=== PATIENT | female | born 1995 | race Caucasian/White ===

== ENCOUNTER 2023-12-02 19:12 | Emergency (ER) | payer OTHER, SELFPAY ==
[2023-12-02 19:15] VITALS: BP 140/92; PULSE 83; RESP 20; TEMP 36.9; O2SAT 97
--- NOTE | 2023-12-02 19:28 | ED.FEMALEGU ---
HPI - Female Genitourinary General Chief complaint: Urogenital-Female Stated complaint: urogenital female Time Seen by Provider: 12/02/23 19:25 PATIENT IS 27 YEARS OLD WHITE FEMALE CAME TO THE EMERGENCY ROOM COMPLAINING OF A SOFT BULGE OF TISSUE IN THE VAGINA THAT MIGHT COME THROUGH THE OPENING OF THE VAGINA. NOTICED FEW HOURS PRIOR TO ARRIVAL TO THE EMERGENCY ROOM. PATIENT DENIES ANY ABDOMINAL PAIN OR PELVIC PAIN, FEVER, CHILLS, NAUSEA, VOMITING, VAGINAL BLEEDING OR DISCHARGE. PATIENT IS STATUS POST VAGINAL DELIVERY 6 MONTHS AGO. PATIENT REPORTED HAVING AN OBGYN AT [facility]. Related Data Home Medications Medication Instructions Recorded Confirmed sertraline 100 mg tablet 100 mg PO BID 12/02/23 12/02/23 Allergies Allergy/AdvReac Type Severity Reaction Status Date / Time No Known Allergies Allergy Verified 12/02/23 19:29 Review of Systems Review of Systems: All systems reviewed & are unremarkable except as noted in HPI and below Exam Narrative: GENERAL APPEARANCE: WELL-DEVELOPED, WELL-NOURISHED SKIN: NORMAL COLOR CHEST AND RESPIRATORY: AIRWAY PATENT, NO RESPIRATORY DISTRESS, NO ACCESSORY MUSCLE USE HEART: REGULAR RATE/RHYTHM ABDOMEN: SOFT, NONTENDER, NO ORGANOMEGALY, QUIET BOWEL SOUNDS MUSCULOSKELETAL: NORMAL RANGE OF MOTION, NONTENDER BACK NEUROLOGIC: ALERT AND ORIENTED ?3, COMPUTER NETWORK SPECIALIST IS NORMAL TESTED, NO GROSS MOTOR DEFICIT : Speculum Exam - Vagina: normal appearance of the vagina Speculum Exam - Cervix: normal appearance of the cervix and Cervical os closed Bimanual Exam- Adnexa, other: no masses Other: NO BULGING THROUGH THE VAGINA DURING PELVIC EXAM WHILE PATIENT LYING FLAT, I WAS ABLE TO IDENTIFY A SMALL POSTERIOR VAGINAL PROLAPSE/RECTOCELE CAUSING SOME BULGING AT THE OPENING OF THE VAGINA BUT NOT COMING OUT OF IT. SOFT, NONTENDER. Course Vital Signs Vital signs: Vital Signs Temperature 36.9 C 12/02/23 19:15 Pulse Rate 83 12/02/23 19:15 Respiratory Rate 20 12/02/23 19:15 Blood Pressure 140/92 H 12/02/23 19:15 Pulse Oximetry 97 12/02/23 19:15 Oxygen Delivery Room Air 12/02/23 19:15 Temperature 36.9 C 12/02/23 19:15 Pulse Rate 80 12/02/23 19:42 Respiratory Rate 18 12/02/23 19:42 Blood Pressure 140/82 12/02/23 19:42 Pulse Oximetry 99 01/19/24 19:42 Oxygen Delivery Room Air 12/02/23 19:42 Critical Care Time Critical Care Time Critical Care Time: No Discharge Plan Discharge Clinical Impression: Rectocele Patient Disposition: Home, Self-Care Condition: Stable Instructions: Rectocele (ED) Additional Instructions: RETURN IF SYMPTOMS ARE WORSENING , CALL YOUR OBGYN FOR APPOINTMENT, TAKE TYLENOL NEEDED FOR ACHES AND PAIN, CONTINUE HOME MEDICATIONS. AVOID STRENUOUS ACTIVITY. Prescriptions: No Action sertraline 100 mg Tablet 100 mg PO BID Follow-up/Referrals: UNKNOWN,DOCTOR [Non-Staff] -
[2023-12-02 19:42] VITALS: BP 140/82; PULSE 80; RESP 18; O2SAT 99
== END 2023-12-02 19:50 | disposition home or self-care (01) ==
PROVIDERS: Emergency Provider Emergency Medicine
DX: N81.6 Rectocele (principal)
CPT/HCPCS: 99284